=== PATIENT | female | born 1960 | race Caucasian/White ===

== ENCOUNTER 2021-06-04 11:22 | Emergency (ER) | payer MEDICAID, SELFPAY ==
[2021-06-04 12:12] VITALS: BP 163/98; PULSE 88; RESP 20; TEMP 36.8; O2SAT 96; BMI 16.2
[2021-06-04 14:09] LABS: Basophils # 0.1 10^3/uL (0.0-0.1); Basophils % 0.8 %; Eosinophils # 0.4 10^3/uL (0.0-0.8); Eosinophils % 3.4 %; Hematocrit 41.3 % (37.0-47.0); Hemoglobin 13.7 g/dL (11.5-15.3); Lymphocytes # 0.7 10^3/uL (0.8-4.8); Mean Corpuscular HGB Conc 33.2 g/dL (30.0-36.0); Mean Corpuscular Hemoglobin 28.3 pg (28.0-34.0); Mean Corpuscular Volume 85.3 fL (81-99); Mean Platelet Volume 9.9 fL (7.4-10.4); Monocytes # 0.4 10^3/uL (0.2-0.9); Monocytes % 3.4 %; Neutrophils % 85.1 %; Nucleated Red Blood Cells % 0 %; Platelet Count 410 10^3/cmm (130-400); Red Blood Count 4.84 10^6/uL (4.1-5.3); Red Cell Distribution Width 13.9 % (12.1-15.1); White Blood Count 10.6 10^3/uL (4.0-10.0)
[2021-06-04 14:14] VITALS: BP 180/79; PULSE 97; RESP 22; O2SAT 98
--- NOTE | 2021-06-04 14:17 | ED_ITS ---
HPI - Abdominal Pain General: Chief Complaint: Abdominal Pain Stated Complaint: VAG BLEEDING FOR 3-4 MONTHS Time Seen by Provider: 06/04/21 14:17 History of Present Illness: HPI narrative: This patient is a 60-year-old female who presents to the [facility] department for severe abdominal cramping and vaginal bleeding. Patient states his bleeding has been spotting the past 4 months and occasional pain. Patient states she has not seen a doctor yet for it. Patient states to be any pain has become unbearable today. Patient states her last menstrual period was when she was 51 years old so she has not had anything menstrual wood for 9 years. Do medical evaluation treat as needed MD elicited complaint: abdominal pain Onset (ago): month(s) Pain Consistency: intermittent Location: Diffuse and Pelvis Severity: moderate Quality: cramping Radiation: none Migration to: no migration Exacerbating factors: nothing Relieving factors: nothing Associated Symptoms: Denies chills, dysuria, fever(s), nausea and vomiting Review of Systems General: Reports: 10 or more systems reviewed and unremarkable except in HPI and below Const: Denies: fever(s), chills, body aches or fatigue Eyes: Denies: change in vision or blurry vision ENMT: Denies: throat pain, hoarseness or mouth pain Card: Denies: chest pain, palpitations, irregular heart rhythm, edema, swelling of feet/ankles or lightheadedness Resp: Denies: dyspnea, productive cough, non-productive cough, wheezing or pain on inspiration GI: Denies: abdominal pain, nausea or vomiting : Reports: vaginal bleeding and irregular period; Denies: flank pain, difficulty voiding, dysuria, urinary frequency, urinary urgency or urinary hesitancy Musc: Denies: neck pain, back pain, extremity pain, extremity swelling, joint pain, joint swelling, joint redness, joint warmth or limited range of motion Skin/Breast: Denies: rash, pruritus, erythema or skin tenderness Neuro: Denies: headache(s), numbness in extremities or weakness in extremities Psych: Denies: anxiety or depression Physical Exam Const: COMMON NORMALS: no acute distress, average body habitus, patient oriented x3, no limitations, healthy appearing, alert and well nourished HENMT: COMMON NORMALS: normocephalic, atraumatic, hearing grossly normal bilaterally, external ears normal, EAC's normal, TM's normal bilaterally, Normal external nose present, Normal nasal mucous membranes and turbinates present, moist oral mucous membranes, oropharynx normal, dentition normal and gingiva normal HEAD & SCALP: normocephalic and atraumatic NOSE: Normal external nose present and Normal nasal mucous membranes and turbinates present EXTERNAL EAR: Yes external ears normal EXTERNAL AUDITORY CANAL: EAC's normal TYMPANIC MEMBRANE: TM's normal bilaterally Neck/C-Spine: COMMON NORMALS: full ROM, no lymphadenopathy, supple, no meningeal signs, no JVD, Thyroid normal and No carotid bruits THYROID: Thyroid normal Chest: COMMONS NORMALS: normal inspection of the chest, normal palpation of entire chest wall, normal inspection of the breasts and normal palpation of the breasts Breast/axilla inspection: Yes normal inspection of the breasts BREAST/AXILLA PALPATION: Yes normal palpation of the breasts Resp: COMMON NORMALS: normal respiratory effort, No retractions, No use of accessory muscles, clear to auscultation bilaterally and percussion normal AUSCULTATION: clear to auscultation bilaterally PERCUSSION: percussion normal Cardio: COMMON NORMALS: no JVD, regular rate, regular rhythm, S1 normal heart sound present, S2 normal heart sound present, No gallops present (Cardio), No clicks present (Cardio), No murmurs present (Cardio), No rub (Cardio) and Peripheral pulses 2+ throughout RATE: regular rate RHYTHM: regular rhythm HEART SOUNDS: S1 normal heart sound present and S2 normal heart sound present PERIPHERAL PULSES: Peripheral pulses 2+ throughout GI: COMMON NORMALS: Normal to inspection, nondistended, normoactive bowel sounds present, Soft to palpation, non-tender, No hepatosplenomegaly present, no masses and no bruits PALPATION: Yes Soft to palpation and Yes No hepatosplenomegaly present Back/Pelvis: COMMON NORMALS: thoracic and lumbar spine normal to inspection, no thoracic nor lumbar tenderness, thoraco-lumbar ROM normal and straight leg raise negative bilaterally Extremity: COMMON NORMALS: normal to inspection, full ROM, capillary refill normal, no joint enlargement, no clubbing, cyanosis or edema, no calf tenderness and no pedal edema Neuro: COMMON NORMALS: patient oriented x3 SENSORIUM/ORIENTATION: Yes alert MENINGEAL SIGNS: Yes no meningeal signs Course Reevaluation(s): Reevaluation #1: Pt States understanding of D/C instruction by Dr Arias Time: 19:29 Consultations: Consultation #1: Patient was seen evaluated by Dr. Arias he will follow patient up in the clinic patient safely be discharged home. Time: 19:29 Vital Signs: Vital signs: Vital Signs Temperature 98.3 F 06/04/21 12:12 Pulse Rate 97 06/04/21 14:14 Respiratory Rate 22 H 06/04/21 14:14 Blood Pressure 180/79 06/04/21 14:14 Pulse Oximetry 98 06/04/21 14:14 MDM - Abdominal Pain MDM Narrative: Medical decision making narrative: This patient is a 60-year-old female who presents to the [facility] department for severe abdominal cramping and vaginal bleeding. Patient states his bleeding has been spotting the past 4 months and occasional pain. Patient states she has not seen a doctor yet for it. Patient states to be any pain has become unbearable today. Patient states her last menstrual period was when she was 51 years old so she has not had anything menstrual wood for 9 years. Differential Diagnosis: Differential diagnosis abdominal pain: Likely abdominal pain Medical Records: Attestation: I reviewed the patient's medical records. Lab Data: Attestation: I reviewed the patient's lab results. Labs: Lab Results 06/04/21 06/04/21 06/04/21 Range/Units 13:51 13:51 13:51 WBC 10.6 H (4.0-10.0) 10^3/ uL RBC 4.84 (4.1-5.3) 10^6/u L Hgb 13.7 (11.5-15.3) g/dL Hct 41.3 (37.0-47.0) % MCV 85.3 (81-99) fL MCH 28.3 (28.0-34.0) pg MCHC 33.2 (30.0-36.0) g/dL RDW 13.9 (12.1-15.1) % Plt Count 410 H (130-400) 10^3/c mm MPV 9.9 (7.4-10.4) fL Neut % (Auto) 85.1 % Lymph % (Auto) 7.0 % [place] % (Auto) 3.4 % Eos % (Auto) 3.4 % Baso % (Auto) 0.8 % Neut # (Auto) 9.00 H (1.8-7.7) 10^3/u L Lymph # (Auto) 0.7 L (0.8-4.8) 10^3/u L [place] # (Auto) 0.4 (0.2-0.9) 10^3/u L Eos # (Auto) 0.4 (0.0-0.8) 10^3/u L Baso # (Auto) 0.1 (0.0-0.1) 10^3/u L Nucleated RBC % (a uto) 0 % Nucleated RBCs # 0.0 /100WBC PT 13.90 (12.1-14.9) SECO NDS INR 1.04 (0.8-1.2) APTT 31.0 (23.9-36.7) SECO NDS Sodium 136 (136-145) mmol/L Potassium 3.7 (3.5-5.1) mmol/L Chloride 101 (98-107) mmol/L Carbon Dioxide 23 (22-29) mmol/L Anion Gap 15.7 (5-19) BUN 16 (6-20) mg/dL Creatinine 0.4 L (0.5-0.9) mg/dL GFR Calculation 163.4 H (90-130) mL/min Glucose 97 (65-115) mg/dL Calculated Osmolal ity 283 L (285-295) mOsm/k g Calcium 9.6 (8.5-10.5) mg/dL Urine Color (Yellow) Urine Appearance (CLEAR) Urine pH (5-7) Ur Specific Gravit y (1.005-1.030) Urine Protein (Negative) Urine Glucose (UA) (Normal) Urine Ketones (Negative) Urine Blood (Negative) Urine Nitrate (Negative) Urine Bilirubin (Negative) Urine Urobilinogen (Negative) mg/dL Ur Leukocyte Diana ase (Negative) Urine RBC (0-2) /hpf Urine WBC (0-5) /hpf Ur Squamous Epith Cells (0-5) /hpf Amorphous Sediment Urine Bacteria (NONE) /hpf Urine Mucus /hpf 06/04/21 Range/Units 14:23 WBC (4.0-10.0) 10^3/ uL RBC (4.1-5.3) 10^6/u L Hgb (11.5-15.3) g/dL Hct (37.0-47.0) % MCV (81-99) fL MCH (28.0-34.0) pg MCHC (30.0-36.0) g/dL RDW (12.1-15.1) % Plt Count (130-400) 10^3/c mm MPV (7.4-10.4) fL Neut % (Auto) % Lymph % (Auto) % [place] % (Auto) % Eos % (Auto) % Baso % (Auto) % Neut # (Auto) (1.8-7.7) 10^3/u L Lymph # (Auto) (0.8-4.8) 10^3/u L [place] # (Auto) (0.2-0.9) 10^3/u L Eos # (Auto) (0.0-0.8) 10^3/u L Baso # (Auto) (0.0-0.1) 10^3/u L Nucleated RBC % (a uto) % Nucleated RBCs # /100WBC PT (12.1-14.9) SECO NDS INR (0.8-1.2) APTT (23.9-36.7) SECO NDS Sodium (136-145) mmol/L Potassium (3.5-5.1) mmol/L Chloride (98-107) mmol/L Carbon Dioxide (22-29) mmol/L Anion Gap (5-19) BUN (6-20) mg/dL Creatinine (0.5-0.9) mg/dL GFR Calculation (90-130) mL/min Glucose (65-115) mg/dL Calculated Osmolal ity (285-295) mOsm/k g Calcium (8.5-10.5) mg/dL Urine Color Yellow (Yellow) Urine Appearance Clear (CLEAR) Urine pH 6 (5-7) Ur Specific Gravit y 1.020 (1.005-1.030) Urine Protein Trace (Negative) Urine Glucose (UA) Norm (Normal) Urine Ketones 1+ H (Negative) Urine Blood Neg (Negative) Urine Nitrate Negative (Negative) Urine Bilirubin Neg (Negative) Urine Urobilinogen Norm (Negative) mg/dL Ur Leukocyte Diana ase Negative (Negative) Urine RBC None (0-2) /hpf Urine WBC 0-4 H (0-5) /hpf Ur Squamous Epith Cells 5-10 H (0-5) /hpf Amorphous Sediment Not Reportable Urine Bacteria Trace (NONE) /hpf Urine Mucus 2+ /hpf Imaging Data ^: US: Attestation: I personally reviewed and interpreted this imaging study as follows: Radiologist's impression: IMPRESSION: 1. There is limited characterization of the uterus and the endometrium with only transabdominal imaging available. Endometrial thickening is suspected. By correlation with the available CT scan there may be a large infiltrative mass of the lower uterine segment and cervix area. 2. Further evaluation is necessary. CT Abd/Pel: Attestation: I personally reviewed and interpreted this imaging study as follows: Radiologist's impression: IMPRESSION: 1. Heterogeneous myometrium and endometrium. With history of vaginal bleeding consider transvaginal pelvic ultrasound imaging. 2. Patient is very cachectic. Lymph nodes would be easily obscured with no fat the loops of colon. No ascites identified. No metastatic lesions in the liver or adrenal glands. 3. Heavy calcification at the aortic bifurcation and common iliac arteries. Component of arterial stenosis is likely. Discharge Plan Discharge Patient Disposition: Home Clinical Impression: Abnormal uterine and vaginal bleeding, unspecified Condition: Stable Prescriptions: New Lysteda 650 mg tablet 1,300 mg PO TID 5 Days Qty: 30 RF: 0 hydrocodone-acetaminophen 5-325 mg tablet 1 tab PO Q6H PRN (Reason: pain) Qty: 7 RF: 0 No Action Tylenol 325 mg Tablet 325 - 650 mg PO QID PRN (Reason: Pain) RF: 0 ibuprofen 200 mg Tablet 200 - 400 mg PO Q6H PRN (Reason: PAIN/FEVER) RF: 0 Discharge Orders: Discharge ED (Routine); Ordered 06/04/21 Ordered By: Ulises Tafoya Referrals: Ronnie Arias MD [Physician] - Discharge Diet: Advance as tolerated Discharge Activity: Resume usual activity Patient Instructions: Opioid Safety Activity Restrictions/Additional Instructions: Encourage p.o. fluids. Follow-up with [facility] TECHNICIAN in 5 to 7 days Coding Level of Care Code ED Central Lab Technician for Chg Fwd Exam Comprehensive
--- NOTE | 2021-06-04 14:23 | CT_ITS ---
WS: [id number] CT ABDOMEN AND PELVIS WITH CONTRAST HISTORY: Abdominal pain with vaginal bleeding for 4 months. TECHNIQUE: Imaging performed of the abdomen and pelvis with IV contrast. Single phase imaging of the abdomen. Coronal and sagittal reformats are submitted. All CT scans at [facility] use at least one of these dose optimization techniques: automated exposure control; mA and/or kV adjustment per patient size (includes targeted exams where dose is matched to clinical indication); or iterativ e reconstruction. IV CONTRAST: Omnipaque 300; 75 mL IV. Oral contrast: No DLP: 592.27 mGy.cm COMPARISON: None available. Lower thorax: Chronic emphysema at the lung bases. Heart is normal size. No hiatal hernia. Liver/biliary system: Normal size liver. Very mild central bile duct dilatation. Bile duct does not a ppear dilated. No mass at the pancreatic head or stone. Gallbladder: Normal. No gallstones or wall thickening. No pericholecystic fluid. Pancreas: Pancreas difficult to visualize as there is no mesenteric fat. No abnormality noted. Spleen: Normal size spleen. No mass or infarct. Adrenal glands: Normal. Right kidney: Too small to characterize hypodensities. No obstruction. Left kidney: Cyst and too small to characterize hypodensities. Largest cyst is 1.0 cm in the lower po le. No obstruction. Aorta: Extensive calcification within the aorta. Moderate stenosis at the bifurcation. There is 6 hea vy calcification in the proximal iliac arteries. Component of arterial obstruction is suspected. Lymphadenopathy: No lymph nodes are identified. There is very little fat the loops of tia l. Lymph nodes would be easily obscured. Free fluid: None. GI tract: Mild fecal retention. Appendix is not definitely identified. No obstruction. Abdominal wall: Unremarkable abdominal wall. No hernia. Pelvis: Lobulated heterogeneous appearance of the uterus. Central endometrium is heterogeneous with b oth scattered cystic areas and solid areas. Neither ovary is well visualized. Bones: L4 anterolisthesis by 4 mm. Prior fusion at L5-S1. CT/CT abdomen pelvis w con* [id number] IMPRESSION: 1. Heterogeneous myometrium and endometrium. With history of vaginal bleeding consider transvaginal pelvic ultrasound imaging. 2. Patient is very cachectic. Lymph nodes would be easily obscured with no fat the loops of colon. No ascites identified. No metastatic lesions in the liver or adrenal glands. 3. Heavy calcification at the aortic bifurcation and common iliac arteries. Co mponent of arterial stenosis is likely.
[2021-06-04 14:25] LABS: INR 1.04 (0.8-1.2)
[2021-06-04 14:31] LABS: Anion Gap 15.7 (5-19); Blood Urea Nitrogen 16 mg/dL (6-20); Calcium 9.6 mg/dL (8.5-10.5); Carbon Dioxide 23 mmol/L (22-29); Chloride 101 mmol/L (98-107); Glomerular Filtration Rate 163.4 mL/min (90-130); Glucose 97 mg/dL (65-115); Osmolality Calculated 283 mOsm/kg (285-295); Potassium 3.7 mmol/L (3.5-5.1); Sodium 136 mmol/L (136-145)
[2021-06-04] MEDS: ondansetron 2 mg/ML SDV 2 mL 4 MG IVP (14:48)
[2021-06-04] MEDS: sodium chloride 0.9% 1,000 ML 999 ML IV (14:49)
[2021-06-04] MEDS: morphine 4 mg/mL SDV 1 mL 2 MG IVP (14:49)
[2021-06-04] MEDS: iohexol 300 mg/mL 100 mL Btl IV (14:56)
[2021-06-04 15:01] LABS: Add Urine Microscopic? YES; Bilirubin Urine Neg (Negative); Blood Urine Neg (Negative); Glucose Urine UA Norm (Normal); Ketones Urine 1+ (Negative); Leukocyte Esterase Urine Negative (Negative); Nitrate Urine Negative (Negative); Protein Urine Trace (Negative); Urine Appearance Clear (CLEAR); Urine Color Yellow (Yellow); Urobilinogen Urine Norm (Negative); pH Urine 6 (5-7)
--- NOTE | 2021-06-04 15:15 | USR_ITS ---
PROCEDURE INFORMATION: Exam: US Nonobstetric Pelvis; Complete Exam date and time: 06/04/2021 3:15 PM Age: 60 years old Clinical indication: Pelvic pain; Prior surgery; Surgery date: 6+ months; Surgery type: 2 c sections; Patient HX: PT in extreme pain. Vag bleed 4 months TECHNIQUE: Imaging protocol: Transabdominal pelvic nonobstetric ultrasound. Complete exam. Real time ultrasound with image documentation. COMPARISON: CT abdomen pelvis w con* [id number] 06/04/2021 2:51 PM FINDINGS: Uterus/cervix: The uterus is not well characterized overall. The size dimensions are approximately 5.8 cm x 3.8 cm x 2.9 cm. The endometrial complex is not well seen distinct from uterine parenchyma. There is possible endometrial thickening. Right adnexa: The right ovary is not seen. The right adnexa is obscured by bowel gas. Left adnexa: The left ovary is not seen. The left adnexa is obscured by bowel gas. Intraperitoneal space: No intraperitoneal fluid. Urinary bladder: Unremarkable. US/US pelvic complete* [id number] IMPRESSION: 1. There is limited characterization of the uterus and the endometrium with only transabdominal imaging available. Endometrial thickening is suspected. By correlation with the available CT scan there may be a large infiltrative mass of the lower uterine segment and cervix area. 2. Further evaluation is necessary.
[2021-06-04 15:19] LABS: Add Urine Culture? No; Bacteria Urine TRACE /hpf; Mucus Urine 2+ /hpf; WBC Urine 0-4 /hpf (0-5)
[2021-06-04] MEDS: ketorolac 30 mg/mL INJ 15 MG IVP (15:57)
[2021-06-04] MEDS: LORazepam 2 mg/mL INJ 1 mL 0.5 MG IVP (18:57)
[2021-06-04 19:52] VITALS: BP 163/88; PULSE 78; RESP 18; TEMP 36.9; O2SAT 96
== END 2021-06-04 19:40 | disposition home or self-care (01) ==
PROVIDERS: Emergency Provider Emergency Medicine
DX: N93.9 Abnormal uterine and vaginal bleeding, unspecified (principal)
CPT/HCPCS: 36415; 74177; 76856; 80048; 81001; 85025; 85610; 85730; 96361; 96374; 96375; 96376; 99284; J1885; J2060; J2270; J2405; J7030; Q9967

== ENCOUNTER → 2021-07-02 15:15 | Outpatient (BNVA) | payer MEDICAID, SELFPAY | PROVIDERS: Visit Provider Obstetrics & Gynecology | DX: Z20.822 Contact with and (suspected) exposure to COVID-19 (principal); N95.0 Postmenopausal bleeding; R10.2 Pelvic and perineal pain; G89.29 Other chronic pain | CPT/HCPCS: 87635 ==

== ENCOUNTER 2021-07-07 05:45 | Day surgery (SDC) | payer MEDICAID, SELFPAY ==
[2021-07-06 14:02] VITALS: BMI 16.5
[2021-07-07] VITALS (15 sets, daily range): BP systolic 99–161; BP diastolic 51–97; PULSE 58–97; RESP 18–21; TEMP 37.2–37.3; O2SAT 94–98
[2021-07-07 06:27] LABS: Add Urine Culture? No; Add Urine Microscopic? YES; Bacteria Urine 1+ /hpf; Bilirubin Urine Neg (Negative); Blood Urine 2+ (Negative); Glucose Urine UA Norm (Normal); Ketones Urine Negative (Negative); Leukocyte Esterase Urine 1+ (Negative); Nitrate Urine Negative (Negative); Protein Urine Trace (Negative); Transitional Epi Cells Urine 15-25 /hpf; Urine Appearance SL Hazy (CLEAR); Urine Color Yellow (Yellow); Urobilinogen Urine Norm (Negative); WBC Urine 40-55 /hpf (0-5); pH Urine 5 (5-7)
--- NOTE | 2021-07-07 06:38 | ANES.PREANE2 ---
Pre-Anesthetic Assessment Pre-Anesthetic Assessment: Height/Weight: Height 1.57 m Weight 40.823 kg Preop Diagnosis: Postmenopausal bleeding Proposed Procedure: Operation Date: 07/07/21 07:00 Proposed Procedures p Hysteroscopy [id number] R10.2(Not Applicable) - Ronnie Arias MD Familial anesthetic complications: None Was Beta Eri taken within 24 hours: N/A Was Clonidine taken within 24 hours: N/A Last intake: Intake Last Liquid Date 07/06/21 Last Liquid Time 23:00 Last Solid Date 07/06/21 Last Solid Time 19:00 Social: Social History: Tobacco and No alcohol Exam: Pre-Anes Outpt Exam: alert, oriented x 3, clear to auscultation bilaterally and regular rate & rhythm Airway: Cervical ROM: WNL MP: 2 Dentition: Other (no teeth) Pulmonary: Pulmonary: COPD CV/HEM: CV/HEM: HTN GI: GI: GERD Anesthetic Plan: ASA status: 2 Anesthesia: General Risk of > 500 ml blood loss (7ml/kg in children): No PFSH Anesthesia PFSH: Medical History (Updated 07/02/21 @ 15:14 by Ronnie Arias MD) Abdominal pain GERD (gastroesophageal reflux disease) Hypertension Mass of uterine cervix determined by ultrasound Nausea & vomiting Vestibular nerve damage Family History (Updated 07/02/21 @ 14:16 by Enriqueta Robb LPN) Mother Diabetes Hypertension Stroke Thyroid disease Denies family history of Colon cancer Ovarian cancer Clotting disorder Hyperlipidemia Bleeding disorder Uterine cancer Social History (Updated 07/02/21 @ 14:17 by Enriqueta Robb LPN) Smoking and tobacco status: current every day smoker cigarettes Packs smoked per day: 1 Alcohol intake: former Data Anesthesia Other Labs: Laboratory Results - last 48 hr 07/07/21 06:04 Urine Color Yellow Urine Appearance Sl hazy Urine pH 5 Ur Specific [place] 1.020 Urine Protein Trace Urine Glucose (UA) Norm Urine Ketones Negative Urine Blood 2+ H Urine Nitrate Negative Urine Bilirubin Neg Urine Urobilinogen Norm Ur Leukocyte Esterase 1+ H Urine RBC 5-10 H Urine WBC 40-55 H Ur Squamous Epith Cells 10-15 H Ur Transition Epith Cell 15-25 Amorphous Sediment Not Reportable Urine Bacteria 1+ H Cardiac Studies: No Data to Display
--- NOTE | 2021-07-07 06:59 | W.PM.OPSUD ---
Surgery/Procedure H&P Update DATE OF PROCEDURE: July 07, 2021 DATE H&P PERFORMED: 07/02/21 H&P UPDATE INFORMATION: I have reviewed H&P completed within last 30 days, I have examined patient prior to procedure and No changes to prior documentation PREOP DIAGNOSIS: Postmenopausal bleeding PLANNED PROCEDURE: Operation Date: 07/07/21 07:00 Proposed Procedures p Hysteroscopy [id number] R10.2(Not Applicable) - Ronnie Arias MD
[2021-07-07] MEDS: sodium chloride 0.9% 1,000 ML 30 ML IV (07:00)
[2021-07-07] MEDS: fentaNYL 50 mcg/mL INJ 2mL 100 MCG (08:15)
[2021-07-07] MEDS: fentaNYL 50 mcg/mL INJ 2mL IVP (08:20)
[2021-07-07 08:29] LABS: Basophils # 0.1 10^3/uL (0.0-0.1); Basophils % 0.9 %; Eosinophils # 1.2 10^3/uL (0.0-0.8); Eosinophils % 11.5 %; Hematocrit 37.6 % (37.0-47.0); Hemoglobin 12.4 g/dL (11.5-15.3); Lymphocytes # 0.8 10^3/uL (0.8-4.8); Lymphocytes % 7.2 %; Mean Corpuscular Hemoglobin 28.2 pg (28.0-34.0); Mean Corpuscular Volume 85.6 fl (81-99); Mean Platelet Volume 11.1 fL (7.4-10.4); Monocytes # 0.5 10^3/uL (0.2-0.9); Monocytes % 4.8 %; Neutrophils # 8.01 10^3/uL (1.8-7.7); Neutrophils % 75.3 %; Nucleated Red Blood Cells % 0 %; Platelet Count 287 10^3/cmm (130-400); Red Blood Count 4.39 10^6/uL (4.1-5.3); Red Cell Distribution Width 13.5 % (12.1-15.1); White Blood Count 10.7 10^3/uL (4.0-10.0)
[2021-07-07 08:38] LABS: Alanine Aminotransferase < 5 U/L (0-33); Albumin Level 4.1 g/dL (3.5-5.2); Alkaline Phosphatase 87 IU/L (35-105); Anion Gap 16.3 (5-19); Aspartate Amino Transferase 13 U/L (0-32); Blood Urea Nitrogen 19 mg/dL (6-20); Calcium 8.6 mg/dL (8.5-10.5); Carbon Dioxide 21 mmol/L (22-29); Chloride 104 mmol/L (98-107); Globulin 3.5 g/dL (1.3-4.6); Glomerular Filtration Rate 163.4 mL/min (90-130); Glucose 93 mg/dL (65-115); Osmolality Calculated 288 mOsm/kg (285-295); Potassium 3.3 mmol/L (3.5-5.1); Sodium 138 mmol/L (136-145); Total Bilirubin 0.4 mg/dL (0.15-1.2); Total Protein 7.6 g/dL (6.6-8.7)
[2021-07-07] MEDS: morphine 4 mg/mL SDV 1 mL IVP (09:12)
--- NOTE | 2021-07-07 09:52 | P.OP_ITS ---
Operative Report Date of procedure: July 07, 2021 Pre-op Diagnosis: Postmenopausal bleeding Post-op diagnosis: same Procedure Done: hysteroscopy and suction D&C Specimens removed/disposition: cervical biopsy and endometrial curetting Pathology: cervical biopsy and endometrial curetting Surgeon: Ronnie Arias MD Anesthesia: MAC Estimated blood loss (mL): 10 IV fluids (mL): 500 Urine output (mL): 50 Condition: stable Disposition: PACU Procedure: After informed consent, the risks included but were not limited to bleeding, infection, injury to internal organs. The patient was counseled on a possible laparotomy and on the potential need for hysterectomy. The patient expressed understanding of the risks involved, all questions were answered, and the patient consented to the procedure. The patient was taken to the operating room where general anesthesia was administered. She was placed in the dorsal lithotomy position and prepped and draped in sterile fashion. A time out procedure was performed. The patient was examined under anesthesia and found to have a normal uterus with normal adnexa. A sterile speculum was placed in the vagina, and the anterior lip of cervix was grasped with the single toothed tenaculum. The uterus was then gently sounded to 5 cm, and the cervix was dilated with c ervical dilators. A 2.7-cm hysteroscope advanced gently to the uterine fundus while visualizing the monitor. Survey of the uterine cavity showed: fundus showed bloody polypoid endometrium; left ostium, and lateral wall with thick irreguar secretory apperance endometrium; right ostium, and lateral wall with thick irreguar secretory apperance endometrium endometrium; anterior and posterior fernandez are with thick irreguar secretory apperance endometrium endometrium; endocervical canal is fibrile. The a suction curette was advanced gently to the uterine fundus and product of conception emptied. A sharp curettage was then performed until a gritty texture was noted. There was minimal bleeding noted and the tenaculum was removed with good hemostasis noted. Hysteroscopy was reinserted. There was minimal bleeding noted and the tenaculum removed with goad hemostasis noted. The patient tolerated the procedure well. The patient was taken to the recovery area in stable condition. This documentation was created by [employer] chief learning officer software (known for inherent chief learning officer error). Every effort was made to assure accuracy of chief learning officer. Any obvious errors or omissions should be clarified with the author of the document.
[2021-07-07] MEDS: ibuprofen 800 mg tablet PO (10:24)
--- NOTE | 2021-07-07 10:37 | SUR.PHASEII ---
patient very angry after post op RX received is ibuprofen 800. she states she needs something stronger. I told her that she had tramadol on her list at home that she would still be able to take, she stated this morning that she took it last night. she says now that she doesnt have anymore tramadol for a while and that it didnt help anything. I took her d/c instructions in and began to read over them with her and she was very negative about her info given and said she already knew all the information. I still read over what she would let me get through then she said she wanted to F-ing leave. Patient dressed herself. Bleeding was on most of michael pad and on the chux under her, this is from the end of procedure until d/c which was time of [id number]. We gave her new michael pads. She left in wheelchair cussing about being sent home with the bleeding she had and not getting stronger medication. Patient left without discharge info packet, we will mail to her. this was reported to Dr. Arias.
--- NOTE | 2021-07-07 13:40 | ANE.PACU2 ---
Inpatient post-anesthesia follow up: Airway intact: Yes Vital signs: Temperature 98.9 F Pulse Rate 97 Respiratory Rate 20 Blood Pressure 148/85 Pulse Oximetry 94 Oxygen Delivery Me thod Room Air Oxygen Flow Rate 8 Fraction of Inspir ed Oxygen Hydration adequate: Yes Nausea and vomiting: No Pain level: 2 Mental status: Baseline
== END 2021-07-07 10:47 | disposition home or self-care (01) ==
PROVIDERS: Visit Provider Obstetrics & Gynecology
PROC: 0UJD8ZZ Inspection of Uterus and Cervix, Via Natural or Artificial Opening Endoscopic (ICD-10-PCS; CPT 58555; principal; 2021-07-07 07:00)
PROC: (CPT 58558; 2021-07-07 07:00)
DX: N95.0 Postmenopausal bleeding (principal); J44.9 Chronic obstructive pulmonary disease, unspecified; I10 Essential (primary) hypertension; F17.210 Nicotine dependence, cigarettes, uncomplicated
CPT/HCPCS: 58558; 36415; 80053; 81001; 85025; 86850; 86900; 88305; 96374; J0690; J2250; J2270; J2405; J2704; J3010; J7030

== ENCOUNTER 2021-09-01 07:58 | Outpatient (CLI) | payer MEDICAID, SELFPAY ==
[2021-09-01 08:58] VITALS: RESP 18; O2SAT 98
[2021-09-01] MEDS: HYDROmorphone 1 mg/mL INJ 1 mL 2 MG IV (08:58)
[2021-09-01] MEDS: LORazepam 0.5 mg Tablet 1 MG PO (09:45)
--- NOTE | 2021-09-01 10:25 | ONC CON_ITS ---
Dr. Dodson New Patient Note Patient: Qing Jesus Unit #: [id number]: 1960 Dicatated By: Graeme Dodson M.D.Date of Visit: Sep 01, 2021 Onc MED New Patient/Consult Referring Physician: Dr. JOSEPH TRAVIS M.D. History of Present Illness: Ms. Qing Jesus, is a 60-year-old woman with a history of lower abdominal pain and progressive vaginal bleeding of 4 months prior to diagnosis duration, underwent CT scan of abdomen pelvis on June 04, 2021 which showed no evidence of hydronephrosis or ureteral obstruction, no lymphadenopathy, lobulated and heterogeneous appearance of uterus, central endometrium is heterogeneous with scattered solid areas, neither ovary was well visualized. And there was a heavy calcification at the aortic bifurcation and common iliac arteries with a component of arterial stenosis likely., For her postmenopausal bleeding patient underwent hysteroscopy and D&C on July 04, 2021 and final pathology revealed endometrial curettage with invasive squamous cell carcinoma, moderately differentiated endocervical biopsy was obtained which confirmed invasive squamous cell carcinoma, moderately differentiated. Patient underwent MRI scan of the pelvis on August 05, 2021 which shows cervical mass extends posterior and is abutting anterior margin of the distal sigmoid colon with no convincing evidence of direct invasion. And enlarged cervix mass also abutting the posterior wall of bladder and cause contour deformity of the bladder but no convincing evidence of bladder wall invasion. CT PET scan done on August 05, 2021 shows intense FDG activity in the region of cervix with SUV of 16.2 and there is 1.4 cm soft tissue nodule adjacent to the right external iliac vasculature with SUV of 11.8 consistent with local metastatic disease. There is a 1.3 cm nodule in the right infrahilar region of the right lung in the right lower lobe with SUV of 1.7. There are 3 small foci of minimally increased activity in the right upper lobe, Patient was referred to [facility] [employer] oncologist in [place], where patient was evaluated by medical oncologist as well as radiation oncologist and patient was diagnosed with cervical cancer, clinical stage at least FIGO stage IIb and was recommended combined chemoradiation with weekly cisplatin, for patient's convenience she was referred to cancer center in [place] for the treatment. Patient has longstanding history of smoking since age 10 and still smoke about 1 pack a day. Denies alcohol use. She has history of chronic lower back pain for which she used to take oxycodone and it was helpful, she has also seen orthopedics in the past she also has history of anxiety disorder for which she used to take Ativan 1 mg every 8 hours as needed Patient is complaining of severe pain lower pelvic/vaginal pain and still having off and on vaginal bleeding, denies any discharge denies any pus but sometimes dysuria/off-and-on fever, denies any melena or hematochezia, denies any hemoptysis hematemesis, denies any jaundice. Complaining of significant weight loss due to poor appetite Past Medical History: Ms. Jesus's medical history consists of calcification of aorta, depression, and hypertension. Past Surgical History: Ms. Jesus's surgical/procedural history consists of caesarean section and lumbar spine surgery with hardware placed. Medications: There is no information available for Current Medications - Patient. Allergies: Amitriptyline HCl and traZODone HCl. Social History: Ms. Jesus is . She is a daily smoker. She is a former drinker. Family History: There is no documented family history. Review Of Symptoms: Review of Systems is not available for this patient. Vital Signs: Performed on Sep 01, 2021 08:46: 10, 10, 16.20 (LOW), 1.42 sq.m, 64 in, 98 %, 94 /min, 18 /min, 187/81 mm(hg) (HIGH), 97.6 F (LOW), and 94.4 lbs (HIGH). Performance Status: 0 - Fully active, able to carry on all predisease activities without restrictions. (ECOG) Physical Examination: ENMT - No complaints, no jaundice, Respiratory - Lungs are clear to auscultation, Cardiovascular - Regular rate and rhythm of heart, Abdomen - Soft, bowel sounds present, Extremities - No visible edema. Lab/Imaging: Most recent lab results are not available for this patient. 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 There is a 1.3 cm nodule in the right infrahilar region of the right lung in the right lower lobe with SUV of 1.7. There are 3 small foci of minimally increased activity in the right upper lobe, Anxiety disorder Chronic smoking Right lower lobe lung nodule History of chronic back pain Plan: Discussed with patient regarding her disease status and treatment options, patient has already seen radiation oncologist and medical oncologist in [place] and has been recommended combined chemoradiation with weekly cisplatin 40 mg per metered square, patient and daughter is aware of related side effects related to weekly cisplatin, but discussed again including but not limited to, nausea vomiting, bone marrow suppression, hair loss, or, nay/nephrotoxicity, were mentioned further teaching will be done by chemotherapy nurse. We will obtain approval from her insurance prior to the treatment and also request Port-A-Cath placement As far as pain is concerned, which appears multifactorial, will give a prescription for oxycodone 10 mg every 6 hours as needed and Ativan 1 mg every 8 hour as needed. Due to dysuria and off-and-on fever will check a urinalysis if there is evidence of urine tract infection will consider antibiotics. As for his right lung nodule seen on CT PET scan is a concern, patient high risk for second primary due to longstanding history of chronic/heavy smoking, will refer her to pulmonology for evaluation in near future Patient was advised to quit smoking was offered any assistance she may need. We will obtain baseline CBC CMP prior to the treatment. Signed By: Graeme Dodson M.D. <<Signature on File>>
--- NOTE | 2021-09-01 10:27 | N.ONRAD NP_ITS ---
Radiation Oncology Consultation Patient Name: Qing Jesus Date of : 1960 Date of Service: 09/01/2021 Attending Physician: Rafi Coelho M.D. Qing Jesus was seen in consultation this morning at the request of Carlo Rubio M.D. for consideration of definitive radiotherapy for the management of a recently diagnosed locally advanced cervical cancer. She presented to [facility] in May with abdominal cramping and vaginal bleeding. Her initial hemoglobin was 13.7 g/dL. An abdominopelvic CT scan obtained during the ED visit on June 04, 2021 identified a lobulated heterogeneous uterus without pelvic lymphadenopathy. A hysteroscopy completed by Ronnie Arias M.D. on July 07, 2021 with cervical biopsy and endometrial curetted diagnosed in invasive, moderately differentiated squamous cell carcinoma (the pathology report was personally reviewed in [facility]). In July, she was admitted to [facility] in [place], [place] by the Department of Gynecologic Oncology. An exam under anesthesia with cystoscopy and proctoscopy was performed by Preethi Farfan M.D. on August 04, 2021. A 4 cm x 5 cm endocervical mass extending to the rectum with bilateral parametrial involvement was described. A mass-effect was present upon the rectum without evidence of rectal invasion. Cystoscopy did not reveal evidence of bladder invasion. An MRI of the pelvis ordered on August 05, 2021 identified a 6 cm x 3.6 cm x 5 cm cervical mass with extension into the lower uterine segment without evidence of pelvic lymphadenopathy. PET/CT imaging completed on August 06, 2021 (independently visualized in [facility]) confirmed the cervical malignancy (SUV 16.2) and a right external iliac lymph node measuring 1.4 cm (SUV 11.8). Multiple pulmonary nodules with minimal hypermetabolic activity were present presumptively correlating to an inflammatory process. The patient was referred for pelvic radiotherapy. I reviewed the FIGO staging and specifically the patient's FIGO stage IIIC1 corresponding to her disease. I also discussed The National Comprehensive Cancer Network Guidelines recommending pelvic external beam radiotherapy and brachytherapy with concurrent systemic therapy. I also discussed the classic trials by the GOG and the RTOG that randomized women with locally advanced cervical cancer to three concurrent chemotherapy regimens and pelvic radiotherapy (GOG) or extended field radiotherapy or pelvic radiation and chemotherapy (RTOG). The results of these studies revealed improvement in overall survival and progression free survival in the cisplatin chemotherapy arms. I would endorse pelvic radiotherapy followed by [id number]-hoke vaginal brachytherapy. A computed tomographic radiotherapy planning scan with contrast in the treatment position will be acquired and co-registered to the patient's PET CT scan to identify the gross tumor volumes. The potential toxicities of extended-field radiation therapy were reviewed. The patient has verbalized understanding would like to proceed as recommended. The patient's medical treatment plan was discussed with Hui Dodson M.D. Signed by: Dr. Rafi Coelho 09/01/2021 10:26:27 AM
[2021-09-01 10:51] LABS: Bilirubin Urine Neg (Negative); Blood Urine Neg (Negative); Glucose Urine UA Norm (Normal); Ketones Urine Negative (Negative); Leukocyte Esterase Urine Trace (Negative); Nitrate Urine Negative (Negative); Protein Urine Neg (Negative); Urine Appearance Clear (CLEAR); Urine Color Yellow (Yellow); Urobilinogen Urine Norm (Negative); pH Urine 5 (5-7)
[2021-09-01 10:52] LABS: Add Urine Culture? No; Bacteria Urine TRACE /hpf; Mucus Urine TRACE /hpf; RBC Urine 0-4 /hpf (0-2); Squamous Epithelial Cell Urine 0-4 /hpf (0-5); WBC Urine 0-4 /hpf (0-5)
[2021-09-01 11:11] LABS: Basophils # 0.1 10^3/uL (0.0-0.1); Basophils % 0.6 %; Eosinophils # 2.2 10^3/uL (0.0-0.8); Eosinophils % 21.3 %; Hematocrit 33.1 % (37.0-47.0); Hemoglobin 10.8 g/dL (11.5-15.3); Lymphocytes # 0.8 10^3/uL (0.8-4.8); Lymphocytes % 7.5 %; Mean Corpuscular HGB Conc 32.6 g/dL (30.0-36.0); Mean Corpuscular Hemoglobin 27.3 pg (28.0-34.0); Mean Corpuscular Volume 83.6 fl (81-99); Mean Platelet Volume 10.1 fL (7.4-10.4); Monocytes # 0.4 10^3/uL (0.2-0.9); Monocytes % 3.4 %; Neutrophils % 66.8 %; Nucleated Red Blood Cells % 0 %; Platelet Count 326 10^3/cmm (130-400); Red Blood Count 3.96 10^6/uL (4.1-5.3); Red Cell Distribution Width 13.9 % (12.1-15.1); White Blood Count 10.2 10^3/uL (4.0-10.0)
[2021-09-01 11:43] LABS: Alanine Aminotransferase < 5 U/L (0-33); Albumin Level 4.1 g/dL (3.5-5.2); Alkaline Phosphatase 94 IU/L (35-105); Anion Gap 17.1 (5-19); Aspartate Amino Transferase 9 U/L (0-32); Blood Urea Nitrogen 16 mg/dL (6-20); Calcium 9.1 mg/dL (8.5-10.5); Carbon Dioxide 21 mmol/L (22-29); Chloride 102 mmol/L (98-107); Creatinine Clr Calc Pharmacy 90.1078; Globulin 3.8 g/dL (1.3-4.6); Glomerular Filtration Rate 126.3 mL/min (90-130); Glucose 93 mg/dL (65-115); Osmolality Calculated 285 mOsm/kg (285-295); Potassium 3.1 mmol/L (3.5-5.1); Sodium 137 mmol/L (136-145); Total Bilirubin 0.2 mg/dL (0.15-1.2); Total Protein 7.9 g/dL (6.6-8.7)
== END 2021-09-01 07:59 | disposition home or self-care (01) ==
PROVIDERS: Absent Provider Radiology Radiation Oncology; Visit Provider Internal Medicine Hematology & Oncology
DX: C53.9 Malignant neoplasm of cervix uteri, unspecified (principal); F41.9 Anxiety disorder, unspecified; F17.210 Nicotine dependence, cigarettes, uncomplicated; R91.1 Solitary pulmonary nodule; M54.50 Low back pain, unspecified; G89.29 Other chronic pain; Z79.899 Other long term (current) drug therapy
CPT/HCPCS: 36415; 80053; 81001; 85025; 96372; 99205; J1170

== ENCOUNTER → 2021-10-07 13:37 | Outpatient (BNVA) | payer MEDICAID, SELFPAY | PROVIDERS: PCP Family Medicine Adult Medicine; Referring Provider Internal Medicine Hematology & Oncology; Visit Provider Surgery | DX: Z20.822 Contact with and (suspected) exposure to COVID-19 (principal); C53.8 Malignant neoplasm of overlapping sites of cervix uteri | CPT/HCPCS: 87635 ==

== ENCOUNTER 2021-10-18 10:03 | Day surgery (SDC) | payer MEDICAID, SELFPAY ==
[2021-10-11 15:16] VITALS: BMI 16.5
--- NOTE | 2021-10-18 | SCC_ITS ---
Procedure Done: 1. Placement of PowerPort via right subclavian vein 2. Fluoroscopic guidance and interpretation for placement of catheter 9.2 seconds of fluoroscopic guidance, for a cumulative dose of 0.88 mGy, was provided to Dr. Cuevas by the radiology department. C-arm images of the chest were saved for the patient's permanent record. [facility]
--- NOTE | 2021-10-18 10:10 | SC_ITS ---
WS: [id number] INTRAOPERATIVE TECHNIQUE: 2 Spot fluoroscopic images for intraoperative purposes. FLUOROSCOPY TIME: 9.2 seconds CLINICAL INFORMATION: Powerport Placement COMPARISON: None. FINDINGS: Right Port-A-Cath with tip in the distal SVC. No visualized pneumothorax. SC/C-arm [place] CVA [id number] IMPRESSION: Images obtained for intraoperative purposes.
[2021-10-18 10:25] VITALS: BP 108/66; PULSE 100; RESP 18; TEMP 36.1; O2SAT 97
--- NOTE | 2021-10-18 10:48 | W.PM.OPSUD ---
Surgery/Procedure H&P Update DATE OF PROCEDURE: October 18, 2021 DATE H&P PERFORMED: 10/07/21 H&P UPDATE INFORMATION: I have reviewed H&P completed within last 30 days, I have examined patient prior to procedure and No changes to prior documentation PREOP DIAGNOSIS: Cervical cancer PRIMARY INDICATION FOR PROCEDURE: The same PLANNED PROCEDURE: Operation Date: 10/18/21 10:40 Proposed Procedures p Portacath Placement(Not Applicable) - Eduardo Cuevas MD
--- NOTE | 2021-10-18 10:49 | ANES.PREANE2 ---
Pre-Anesthetic Assessment Pre-Anesthetic Assessment: Height/Weight: Height 1.57 m Weight 40.823 kg Temp Pulse Resp BP Pulse Ox 97.0 F L 100 18 108/66 97 10/18/21 10:25 10/18/21 10:25 10/18/21 10:25 10/18/21 10:25 10/18/21 10:25 Preop Diagnosis: Cervical cancer Proposed Procedure: Operation Date: 10/18/21 10:40 Proposed Procedures p Portacath Placement(Not Applicable) - Eduardo Cuevas MD Was Beta Eri taken within 24 hours: N/A Was Clonidine taken within 24 hours: N/A Last intake: Intake Last Liquid Date 10/17/21 Last Liquid Time 23:00 Last Solid Date 10/17/21 Last Solid Time 20:00 Social: Social History: Tobacco and No alcohol Exam: Pre-Anes Outpt Exam: alert, oriented x 3 and regular rate & rhythm Airway: Submandibular: WNL Cervical ROM: WNL MP: 2 CV/HEM: CV/HEM: HTN GI: GI: GERD Musc/skel: Comments: CA pain Neuropsych: Neuropsych: Anxiety and Depression Anesthetic Plan: ASA status: 3 Anesthesia: MAC Risk of > 500 ml blood loss (7ml/kg in children): No PFSH Anesthesia PFSH: Medical History Abdominal pain Anxiety and depression GERD (gastroesophageal reflux disease) Hypertension Mass of uterine cervix determined by ultrasound Nausea & vomiting Vestibular nerve damage Family History Mother Diabetes Hypertension Stroke Thyroid disease Denies family history of Colon cancer Ovarian cancer Clotting disorder Hyperlipidemia Bleeding disorder Uterine cancer Social History Smoking and tobacco status: current every day smoker cigarettes Packs smoked per day: 1 Alcohol intake: former Data Anesthesia Cardiac Studies: No Data to Display
[2021-10-18] MEDS: sodium chloride 0.9% 1,000 ML 30 ML IV (10:52)
[2021-10-18] MEDS: scopolamine 1.5 Patch 1 PATCH TRANSDERMA (10:54)
[2021-10-18] MEDS: ondansetron 2 mg/ML SDV 2 mL 4 MG IVP (11:01)
[2021-10-18] MEDS: diphenhydrAMINE 50 mg/mL SDV 1mL 12.5 MG IVP (11:04)
[2021-10-18 11:05] VITALS: RESP 18; O2SAT 95
[2021-10-18] MEDS: fentaNYL 50 mcg/mL INJ 2mL IVP (11:05)
[2021-10-18] MEDS: ceFAZolin 1,000 MG in sodium chloride 0.9% (plus) 50 ML 100 MG IV (11:19)
[2021-10-18] MEDS: heparin, porcine 1,000 unit/mL INJ 10 mL 10000 UNIT IRRIGATION (11:43)
[2021-10-18] MEDS: lidocaine 2% INJ 20 mL INJECTION (11:43)
--- NOTE | 2021-10-18 11:51 | PM.OP ---
Operative Report Date of procedure: October 18, 2021 Pre-op Diagnosis: Cervical cancer Post-op diagnosis: same Procedure Done: 1. Placement of PowerPort via right subclavian vein 2. Fluoroscopic guidance and interpretation for placement of catheter Implants: Right subclavian vein PowerPort Surgeon: Eduardo Cuevas Clinical Documentation Consultant: Lawson Jefferson Circulating nurse Natalia Anesthesia: MAC (marketing professional Baljeet) Estimated blood loss (mL): 5 Condition: stable Disposition: same day Procedure: Patient was identified in the holding area and taken to the operative room and placed in supine position IV propofol was given by the anesthesia provider ,both arms were tucked,Time-out was done verifying the patient's name/date of /planned procedure and destination after the procedure, all were in agreement. SCDs confirmed to be functioning, preoperative antibiotics administered per protocol, and beta samantha protocol was confirmed, appropriate positioning of the patient was done by me. Medications were reviewed to assess for anticoagulant usage. Risks and benefits and prevention of central line associated blood stream infection (CLABSI) were discussed with the patient/CPOA, and a consent was obtained. Monitors were in place and monitored throughout the procedure. All necessary supplies were available prior to start. Hand hygiene was completed prior to starting. Maximum barrier technique was utilized including a sterile gown, sterile gloves with a hat and mask. Site was was prepped with [chlorhexidine] and a full body drape was placed. 5 mL of 2% lidocaine was injected into the skin with a 25 gauge needle. Prep& drape was done under the usual sterile technique, lidocaine 2% was injected at the site of the stick, started by right subclavian vein stick that retrieved venous blood was obtained from the first stick, a guidewire was then threaded and under the guidance of fluoroscopy position was confirmed to be in the IVC and my interpretation, there was no PVC changes, at that point the guidewire was secured to the drapes with a hemostat and the needle was taken out, attention was then deviated towards creation of a pocket for the port were lidocaine 2% was injected using an 15 blade knife skin incision was created dissection using the Bovie to create a pocket for the PowerPort to be accommodated, hemostasis was secured, after the port being appropriately flushed it was inserted into the pocket and a tunneler was used to accommodate the catheter of the port cath to be delivered through the incision first created at the site of the stick, at that point under fluoroscopy an estimated length was measured for the catheter and was cut at the designed level, followed by that a dilator with the sheath introduced onto the guidewire the dilator and the wire were retrieved and the catheter of the port was introduced via the sheath where it was peeled off and the catheter maintained to be in the SVC that was confirmed with fluoroscopy, and the fluoroscopy interpretation was done by me throughout the entire procedure. The port was kept in its pocket, 3-0 Vicryl deep subdermal interrupted sutures, skin was then closed by 4-0 Monocryl as subcuticular closure.The port was appropriately flushed with heparin and venous blood was withdrawn without difficulty. The stick site was closed by 3-0 Vicryl and surgical glue was used followed by dressing. Patient tolerated the procedure well was taken to the recovery area Count was correct at the end of the procedure I was present for the whole entire procedure Position of the catheter was checked with a postoperative chest x-ray and it was in good position without evidence of pneumothorax
--- NOTE | 2021-10-18 11:53 | XRR_ITS ---
PROCEDURE INFORMATION: Exam: XR Chest Exam date and time: 10/18/2021 11:53 AM Age: 60 years old Clinical indication: Device placement. Right subclavian vein powerport placement. Post-operative (0-2 days). Status post right subclavian vein powerport placement. TECHNIQUE: Imaging protocol: XR of the chest. Views: 1 view. COMPARISON: CR Chest 1 [place] [id number] 12/10/2017 6:06 AM FINDINGS: Tubes, catheters and devices: Right subclavian port with tip in the SVC. Lungs: There is mild streaky and hazy opacity in the right apex that could developing infiltrate. Pleural spaces: No pleural effusion.. No pneumothorax. Heart/Mediastinum: The cardiac silhouette is approximately unchanged. No gross evidence of pneumomediastinum. Bones/joints: No gross fracture. XR/XR chest 1V portable [id number] IMPRESSION: 1. Right subclavian port with tip in the SVC. 2. Mild streaky and hazy opacity in the right apex that could developing infiltrate. Radiation Dose CTDIVOL = (mGy): DLP = (mGy-cm)
[2021-10-18 12:03] VITALS: BP 101/64; PULSE 85; RESP 16; TEMP 36.3; O2SAT 98
--- NOTE | 2021-10-18 12:06 | P.PCN_ITS ---
Documented by User: Baljeet Mcneil CRNA 10/18/21 12:06 PACU note PACU note: VSS, Good respiratory effort, report to [facility] Post-Anesthesia Exam: awake
[2021-10-18 12:10] VITALS: BP 114/69; PULSE 86; RESP 17; TEMP 36.5; O2SAT 96
[2021-10-18 12:17] VITALS: BP 106/71; PULSE 85; RESP 16; TEMP 36.5; O2SAT 96
[2021-10-18 12:33] VITALS: BP 119/63; PULSE 82; RESP 18; O2SAT 98
[2021-10-18] MEDS: HYDROcodone-acetaminophen 5-325 mg Tablet 1 TAB PO (12:36)
--- NOTE | 2021-10-18 13:49 | ANE.PACU2 ---
Inpatient post-anesthesia follow up: Airway intact: Yes Vital signs: Temperature 97.7 F Pulse Rate 82 Respiratory Rate 18 Blood Pressure 119/63 Pulse Oximetry 98 Oxygen Delivery Me thod Room Air Oxygen Flow Rate Fraction of Inspir ed Oxygen Hydration adequate: Yes Nausea and vomiting: No Pain level: 1 Mental status: Baseline
== END 2021-10-18 12:50 | disposition home or self-care (01) ==
PROVIDERS: Absent Provider Radiology Radiation Oncology; PCP Family Medicine Adult Medicine; Visit Provider Surgery
PROC: (CPT 36561; principal; 2021-10-18 10:40)
DX: C53.9 Malignant neoplasm of cervix uteri, unspecified (principal); I10 Essential (primary) hypertension; F17.200 Nicotine dependence, unspecified, uncomplicated
CPT/HCPCS: 36561; 71045; 77001; C1788; J0690; J1200; J1644; J2405; J2704; J3010; J7030

== ENCOUNTER 2021-10-19 08:11 | Outpatient (RCR) | payer MEDICAID, SELFPAY ==
--- NOTE | 2021-10-19 | CT_ITS ---
Radiation Therapy Planning CT images; total exam DLP: 667.51 mGy-cm MTDD
[2021-10-19 08:47] LABS: Basophils % 0.4 %; Eosinophils # 1.2 10^3/uL (0.0-0.8); Eosinophils % 14.7 %; Hematocrit 26.2 % (37.0-47.0); Hemoglobin 8.2 g/dL (11.5-15.3); Lymphocytes # 0.5 10^3/uL (0.8-4.8); Lymphocytes % 6.5 %; Mean Corpuscular HGB Conc 31.3 g/dL (30.0-36.0); Mean Corpuscular Hemoglobin 25.1 pg (28.0-34.0); Mean Corpuscular Volume 80.1 fl (81-99); Mean Platelet Volume 9.7 fL (7.4-10.4); Monocytes # 0.3 10^3/uL (0.2-0.9); Monocytes % 3.8 %; Neutrophils # 5.91 10^3/uL (1.8-7.7); Neutrophils % 74.3 %; Nucleated Red Blood Cells % 0 %; Platelet Count 239 10^3/cmm (130-400); Red Blood Count 3.27 10^6/uL (4.1-5.3); Red Cell Distribution Width 14.9 % (12.1-15.1)
[2021-10-19 09:17] LABS: Alanine Aminotransferase < 5 U/L (0-33); Albumin Level 3.8 g/dL (3.5-5.2); Alkaline Phosphatase 102 IU/L (35-105); Anion Gap 15.2 (5-19); Aspartate Amino Transferase 9 U/L (0-32); Blood Urea Nitrogen 10 mg/dL (6-20); Calcium 8.4 mg/dL (8.5-10.5); Carbon Dioxide 24 mmol/L (22-29); Chloride 100 mmol/L (98-107); Globulin 2.6 g/dL (1.3-4.6); Glomerular Filtration Rate 163.4 mL/min (90-130); Glucose 126 mg/dL (65-115); Osmolality Calculated 281 mOsm/kg (285-295); Potassium 4.2 mmol/L (3.5-5.1); Sodium 135 mmol/L (136-145); Total Bilirubin 0.2 mg/dL (0.15-1.2); Total Protein 6.4 g/dL (6.6-8.7)
[2021-10-19 09:27] VITALS: RESP 22; O2SAT 98
[2021-10-19] MEDS: morphine 4 mg/mL SDV 1 mL 2 MG IV (09:27)
== END 2021-10-19 23:59 | disposition home or self-care (01) ==
LOC: ONCMED 08:11
PROVIDERS: Radiology Radiation Oncology; PCP Family Medicine Adult Medicine; Visit Provider Internal Medicine Hematology & Oncology
DX: Z51.0 Encounter for antineoplastic radiation therapy (principal); C53.9 Malignant neoplasm of cervix uteri, unspecified; Z79.899 Other long term (current) drug therapy
CPT/HCPCS: 77263; 77334; 77470; 80053; 85025; 96374; J2270; Q9967

== ENCOUNTER 2021-10-27 06:33 | Outpatient (RCR) | payer MEDICAID, SELFPAY ==
[2021-10-27 08:27] LABS: Basophils % 0.4 %; Eosinophils # 0.6 10^3/uL (0.0-0.8); Eosinophils % 5.7 %; Hematocrit 27.4 % (37.0-47.0); Hemoglobin 8.8 g/dL (11.5-15.3); Lymphocytes # 0.6 10^3/uL (0.8-4.8); Lymphocytes % 5.1 %; Mean Corpuscular HGB Conc 32.1 g/dL (30.0-36.0); Mean Corpuscular Hemoglobin 25.4 pg (28.0-34.0); Mean Platelet Volume 9.9 fL (7.4-10.4); Monocytes # 0.4 10^3/uL (0.2-0.9); Monocytes % 3.6 %; Neutrophils # 9.38 10^3/uL (1.8-7.7); Neutrophils % 84.9 %; Nucleated Red Blood Cells % 0 %; Platelet Count 321 10^3/cmm (130-400); Red Blood Count 3.47 10^6/uL (4.1-5.3); Red Cell Distribution Width 15.4 % (12.1-15.1)
[2021-10-27] MEDS: sodium chloride 0.9% 250 ML 75 ML IV ×2 (08:45)
[2021-10-27 08:51] LABS: Alanine Aminotransferase 6 U/L (0-33); Albumin Level 3.7 g/dL (3.5-5.2); Alkaline Phosphatase 88 IU/L (35-105); Anion Gap 18.7 (5-19); Aspartate Amino Transferase 11 U/L (0-32); Blood Urea Nitrogen 15 mg/dL (6-20); Calcium 8.5 mg/dL (8.5-10.5); Carbon Dioxide 23 mmol/L (22-29); Chloride 102 mmol/L (98-107); Globulin 3.4 g/dL (1.3-4.6); Glomerular Filtration Rate 126.3 mL/min (90-130); Glucose 134 mg/dL (65-115); Osmolality Calculated 293 mOsm/kg (285-295); Potassium 3.7 mmol/L (3.5-5.1); Sodium 140 mmol/L (136-145); Total Bilirubin 0.3 mg/dL (0.15-1.2); Total Protein 7.1 g/dL (6.6-8.7)
[2021-10-27] MEDS: morphine 4 mg/mL SDV 1 mL 2 MG IV (10:12)
[2021-10-27] MEDS: palonosetron 0.25 mg/5 mL SDV IV (10:50)
[2021-10-27] MEDS: fosaprepitant 150 MG in sodium chloride 0.9% 150 ML 300 MG IV (11:13)
[2021-10-27 12:51] LABS: Ferritin 60 ng/mL (15-150); Iron 20 ug/dL (37-145); Total Iron Binding Capacity 248 mcg/dl; Unsaturated Iron Binding 228 ug/dL (112-347)
[2021-10-27] MEDS: LORazepam 2 mg/mL INJ 1 mL 1 MG IV (12:56)
[2021-10-27] MEDS: FUROsemide 10 mg/mL SDV 2mL 20 MG IV ×2 (13:46)
[2021-10-27] MEDS: potassium chloride 20 MEQ in sodium chloride 0.9% 500 ML 500 MEQ IV (13:50)
== END 2021-11-19 23:59 | disposition home or self-care (01) ==
LOC: ONCMED 06:33
PROVIDERS: Absent Provider Radiology Radiation Oncology; PCP Family Medicine Adult Medicine; Visit Provider Internal Medicine Hematology & Oncology
DX: Z51.0 Encounter for antineoplastic radiation therapy (principal); Z51.11 Encounter for antineoplastic chemotherapy; C53.9 Malignant neoplasm of cervix uteri, unspecified
CPT/HCPCS: 77014; 77300; 77301; 77338; 77386; 80053; 82728; 83540; 83550; 85025; 96366; 96367; 96375; 96413; J1100; J1453; J1940; J2060; J2270; J2469; J3475; J3480; J7030; J7040; J7050; J9060

== ENCOUNTER 2022-02-25 11:34 | Emergency (ER) | payer MEDICAID, SELFPAY ==
[2022-02-25 11:42] VITALS: PULSE 81; RESP 16; TEMP 36.5; O2SAT 97; BMI 17.4
--- NOTE | 2022-02-25 11:56 | CT_ITS ---
WS: [id number] CT HEAD TECHNIQUE: Noncontrast CT of the head obtained from the skullbase to the vertex. CLINICAL INFORMATION: fall, head strike COMPARISON: CT 1 20,018 DLP: 784.[address] scans at [facility] use at least one of these dose optimization techniques: automated e xposure control; mA and/or kV adjustment per patient size (includes targeted exams where dose is matc hed to clinical indication); or iterative reconstruction. FINDINGS: No evidence of intracranial hemorrhage or mass effect. Ventricular system and basal cisterns are rizvi nt. Mild small vessel changes with mild parenchymal volume loss. No extra-axial fluid collections. No evidence of mass or mass effect. Normal aponte-white differentiation. Paranasal sinuses and mastoid air cells are well aerated. . Mild soft tissue edema overlying the RIGH T frontal lateral calvarium. No acute fractures. Mastoid air cells are well aerated. Slight mucosal t hickening ethmoid air cells. CT/CT head wo con* [id number] IMPRESSION: 1. No evidence of intracranial hemorrhage or mass effect. 2. Mild small vessel changes with mild parenchymal volume loss. 3. Mild soft tissue edema overlying the RIGHT frontal lateral calvarium. No ac [place] fractures. 4. No acute intracranial findings.
--- NOTE | 2022-02-25 12:05 | ED_ITS ---
Documented by User: Alicia Ascencio PA-C 02/25/22 14:17 HPI - Fall General: Chief Complaint: Fall Stated Complaint: FALL/ R SHOULDER PAIN/ TEMPORAL LAC Time Seen by Provider: 02/25/22 11:58 Source: patient and family Mode of arrival: EMS Limitations: no limitations History of Present Illness: 61-year-old female presents to the ER via EMS after falling this morning at the half-way. Patient reports she was standing on a chair to hang a calendar when she lost balance and fell, hitting her head and landing on her right shoulder. Patient reports a laceration to the right restoration that is bleeding. She reports pain in the right shoulder in addition to pain in the neck. Patient is on hospice and is a DNR at this time due to cervical cancer. Patient denies dizziness but does report a headache at this time that is new since falling this morning. Patient denies losing consciousness. She reports after she fell she started yelling to try to get help. Patient does not report a prolonged downtime after the fall. Fall from: chair Fall witnessed: no Place fall occurred: half-way/SNF Loss of consciousness: None Prolonged down time: no Associated symptoms-after fall: Reports headache(s) Review of Systems General: Reports: 10 or more systems reviewed and unremarkable except in HPI and below Musc: Reports: other (Right shoulder pain, neck pain) Skin/Breast: Reports: other (laceration to R restoration) Neuro: Reports: headache(s); Denies: dizziness [facility] ED PFSH: Medical History Abdominal pain Anemia in chronic illness Anxiety and depression GERD (gastroesophageal reflux disease) Hypertension Mass of uterine cervix determined by ultrasound Nausea & vomiting Vestibular nerve damage Family History Mother Diabetes Hypertension Stroke Thyroid disease Denies family history of Colon cancer Ovarian cancer Clotting disorder Hyperlipidemia Bleeding disorder Uterine cancer Social History Smoking and tobacco status: current every day smoker cigarettes Packs smoked per day: 1 Alcohol intake: former Physical Exam Const: GENERAL APPEARANCE: cooperative, ill appearing, frail appearing, appears older than stated age and other (cachectic) HENMT: HEAD & SCALP: laceration (4 cm laceration to R restoration) Eye: COMMON NORMALS: conjunctivae normal CONJUNCTIVA: Yes conjunctivae normal Neck/C-Spine: CERVICAL SPINE: Yes Cervical spine tenderness C4, C5, C6 and diffuse and Yes Paracervical muscle tenderness right Resp: EFFORT & INSPECTION: Yes able to speak in complete sentences and No respiratory distress Cardio: COMMON NORMALS: regular rate and regular rhythm RATE: regular rate RHYTHM: regular rhythm Extremity: OTHER: R humerus/shoulder tender to palpation and pain with any movement Neuro: OTHER: at pts baseline Skin: OTHER: 4 cm laceration to the R restoration, superficial Procedures Laceration Laceration 1: Site: face and other (R restoration) Side (If applicable): right Size (cm): 4 Description: linear Depth: simple, single layer Local Anesthetic: lidocaine 1% Amount of anesthesia used (mL): 1 Skin layer closed with: other (ethilon) Size (cm): 6-0 Number of sutures: 3 Technique: simple, interrupted Course ED course: 61-year-old female with a history of cervical cancer on hospice and DNR presents to the ER today after a fall this morning at the half-way. Patient was climbing on a chair and became dizzy and fell. Patient hit her head and has a laceration to the right restoration in addition to right arm pain. Patient reports she landed on her right arm. She also reports some neck pain with any movement. We will get a CT of the head and also the C-spine given mechanism of injury and patient's health status. We will also get an x-ray of the right shoulder given patient's pain. We will suture the laceration on the forehead. Vital Signs: Vital signs: Vital Signs Temperature 97.7 F 02/25/22 11:42 Pulse Rate 81 02/25/22 11:42 Respiratory Rate 16 02/25/22 11:42 Pulse Oximetry 97 02/25/22 11:42 MDM - Fall Medical Decision Making [id number] female with a history of end-stage cervical cancer and is on hospice and DNR presents to the ER today after a fall this morning. Patient was putting a counter on the wall when she became dizzy and fell off. Patient hit her head on something when she fell and has a laceration to the right restoration. Patient also complains of right shoulder pain and neck pain. Patient denies loss of consciousness. Patient reports she called for help immediately. Laceration was repaired in the ER today with 3 Ethilon sutures. X-ray indicates a humeral head fracture with minimal displacement. CT of the C-spine and the brain were negative for acute injuries. Discussed findings with patient and family. We will release patient back to hospice facility at this time. Patient is currently on Roxanol methadone and alprazolam through hospice. Patient was placed in a shoulder immobilizer and should follow-up with primary care in 1 week. Return to the ER with new or worsening symptoms. Patient verbalized understanding and is in agreement with the treatment plan. Lab Data Radiology Impressions Head CT 02/25/22 11:56 IMPRESSION: 1. No evidence of intracranial hemorrhage or mass effect. 2. Mild small vessel changes with mild parenchymal volume loss. 3. Mild soft tissue edema overlying the RIGHT frontal lateral calvarium. No acute fractures. 4. No acute intracranial findings. Shoulder X-Ray 02/25/22 12:32 IMPRESSION: Right shoulder fracture as above. Cervical Spine CT 02/25/22 12:57 IMPRESSION: No evidence of acute fracture or dislocation. Discharge Plan Discharge Patient Disposition: Hospice - Medical Facility Clinical Impression: Fall from chair or bed Closed fracture of head of right humerus Qualifiers: Encounter type: initial encounter Qualified Code(s): S42.291A - Other displaced fracture of upper end of right humerus, initial encounter for closed fracture Laceration of head Qualifiers: Encounter type: initial encounter Location of open wound of head: other part of head Foreign body presence: without foreign body Qualified Code(s): S01.81XA - Laceration without foreign body of other part of head, initial encounter Condition: Stable Prescriptions: No Action acetaminophen [Tylenol] 325 mg Tablet 325 - 650 mg PO Q6H PRN (Reason: Pain) 0RF Lasix 40 mg Tablet 40 mg PO DAILY@08 0RF senna 8.6 mg Tablet 17.2 mg PO BEDTIME@20 0RF acetaminophen 650 mg Suppository 650 mg WA Q4H PRN (Reason: Fever) 0RF Xanax 1 mg Tablet 1 mg PO QID@00,06,12,18 0RF methadone 10 mg Tablet 10 mg PO TID@08,14,20 0RF ondansetron HCl 4 mg tablet 4 mg PO Q8H PRN (Reason: Nausea) 0RF Roxanol 20 mg/5 mL (4 mg/mL) Solution See Rx Instructions .ROUTE .COMPLEX 0RF Rx Instructions: 0.25ml to 1ml under tongue every one hour prn pain or air hunger potassium citrate 10 mEq (1,080 mg) Tablet Extended Release 10 meq PO DAILY@08 0RF Miralax 17 gram/dose Powder 17 g PO DAILY@08 0RF atropine 1 % Drops See Rx Instructions .ROUTE .COMPLEX 0RF Rx Instructions: 1-4 drops under tongue every one hour prn secretions lorazepam [Lorazepam Intensol] 2 mg/mL Concentrate See Rx Instructions .ROUTE .COMPLEX 0RF Rx Instructions: 0.25ml to 1ml under tongue every one hour prn for anxiety or restlessness Referrals: Irwin Chua MD [Primary Care Provider] - Discharge Diet: Usual diet Discharge Activity: Limit activity as instructed Activity Restrictions/Additional Instructions: Wear sling as placed in ER. Continue home medications. Follow-up with primary care doctor in 1 week. Return to the ER with new or worsening symptoms. Coding Level of Care Code ED Calciminer for Chg Fwd Exam Detailed Documented by User: Indra Olivia DO 02/25/22 17:36 HPI - Fall General: Chief Complaint: Fall Stated Complaint: FALL/ R SHOULDER PAIN/ TEMPORAL LAC Time Seen by Provider: 02/25/22 11:58 PFSH ED PFSH: Medical History Abdominal pain Anemia in chronic illness Anxiety and depression GERD (gastroesophageal reflux disease) Hypertension Mass of uterine cervix determined by ultrasound Nausea & vomiting Vestibular nerve damage Family History Mother Diabetes Hypertension Stroke Thyroid disease Denies family history of Colon cancer Ovarian cancer Clotting disorder Hyperlipidemia Bleeding disorder Uterine cancer Social History Smoking and tobacco status: current every day smoker cigarettes Packs smoked per day: 1 Alcohol intake: former Course Vital Signs: Vital signs: Vital Signs Temperature 97.7 F 02/25/22 11:42 Pulse Rate 81 02/25/22 11:42 Respiratory Rate 16 02/25/22 11:42 Pulse Oximetry 97 02/25/22 11:42 MDM - Fall Medical Decision Making [id number] female with a history of end-stage cervical cancer and is on hospice and DNR presents to the ER today after a fall this morning. Patient was putting a counter on the wall when she became dizzy and fell off. Patient hit her head on something when she fell and has a laceration to the right restoration. Patient also complains of right shoulder pain and neck pain. Patient denies loss of consciousness. Patient reports she called for help immediately. Laceration was repaired in the ER today with 3 Ethilon sutures. X-ray indicates a humeral head fracture with minimal displacement. CT of the C-spine and the brain were negative for acute injuries. Discussed findings with patient and family. We will release patient back to hospice facility at this time. Patient is currently on Roxanol methadone and alprazolam through hospice. Patient was placed in a shoulder immobilizer and should follow-up with primary care in 1 week. Return to the ER with new or worsening symptoms. Patient verbalized understanding and is in agreement with the treatment plan. Chart reviewed and patient discussed with midlevel. Agree with assessment and plan. Lab Data Radiology Impressions Head CT 02/25/22 11:56 IMPRESSION: 1. No evidence of intracranial hemorrhage or mass effect. 2. Mild small vessel changes with mild parenchymal volume loss. 3. Mild soft tissue edema overlying the RIGHT frontal lateral calvarium. No acute fractures. 4. No acute intracranial findings. Shoulder X-Ray 02/25/22 12:32 IMPRESSION: Right shoulder fracture as above. Cervical Spine CT 02/25/22 12:57 IMPRESSION: No evidence of acute fracture or dislocation. Discharge Plan Discharge Patient Disposition: Hospice - Medical Facility Clinical Impression: Fall from chair or bed Closed fracture of head of right humerus Qualifiers: Encounter type: initial encounter Qualified Code(s): S42.291A - Other displaced fracture of upper end of right humerus, initial encounter for closed fracture Laceration of head Qualifiers: Encounter type: initial encounter Location of open wound of head: other part of head Foreign body presence: without foreign body Qualified Code(s): S01.81XA - Laceration without foreign body of other part of head, initial encounter Condition: Stable Prescriptions: No Action acetaminophen [Tylenol] 325 mg Tablet 325 - 650 mg PO Q6H PRN (Reason: Pain) 0RF Lasix 40 mg Tablet 40 mg PO DAILY@08 0RF senna 8.6 mg Tablet 17.2 mg PO BEDTIME@20 0RF acetaminophen 650 mg Suppository 650 mg WA Q4H PRN (Reason: Fever) 0RF Xanax 1 mg Tablet 1 mg PO QID@00,06,12,18 0RF methadone 10 mg Tablet 10 mg PO TID@08,14,20 0RF ondansetron HCl 4 mg tablet 4 mg PO Q8H PRN (Reason: Nausea) 0RF Roxanol 20 mg/5 mL (4 mg/mL) Solution See Rx Instructions .ROUTE .COMPLEX 0RF Rx Instructions: 0.25ml to 1ml under tongue every one hour prn pain or air hunger potassium citrate 10 mEq (1,080 mg) Tablet Extended Release 10 meq PO DAILY@08 0RF Miralax 17 gram/dose Powder 17 g PO DAILY@08 0RF atropine 1 % Drops See Rx Instructions .ROUTE .COMPLEX 0RF Rx Instructions: 1-4 drops under tongue every one hour prn secretions lorazepam [Lorazepam Intensol] 2 mg/mL Concentrate See Rx Instructions .ROUTE .COMPLEX 0RF Rx Instructions: 0.25ml to 1ml under tongue every one hour prn for anxiety or restlessness Referrals: Irwin Chua MD [Primary Care Provider] - Discharge Diet: Usual diet Discharge Activity: Limit activity as instructed Activity Restrictions/Additional Instructions: Wear sling as placed in ER. Continue home medications. Follow-up with primary care doctor in 1 week. Return to the ER with new or worsening symptoms. Coding Level of Care Code ED Calciminer for Marieg Fwd Exam Detailed
--- NOTE | 2022-02-25 12:12 | PC.PHAR ---
pt is from [facility]-yousif wakefield nurse at [facility] states the pt took am meds today
--- NOTE | 2022-02-25 12:32 | XR_ITS ---
WS: [id number] XR shoulder RT min 2V* [id number] REASON FOR EXAM: fall with arm pain FINDINGS: Fracture at the surgical neck of the humerus with 2 large and 2 small fragments of the humeral head. Fragments are minimally displaced. No glenohumeral dislocation. Osteoarthropathy in the acromioclavicular joint. Chemotherapy infusion port over the right chest with right subclavian vein catheter. XR/XR shoulder RT min 2V* [id number] IMPRESSION: Right shoulder fracture as above.
--- NOTE | 2022-02-25 12:57 | CT_ITS ---
WS: [id number] CT CERVICAL TRAUMA TECHNIQUE: Noncontrast CT of the cervical spine with coronal and sagittal reformatted images. CLINICAL INFORMATION: fall with pain COMPARISON: None. DLP: 252.[address] scans at [facility] use at least one of these dose optimization techniques: automated e xposure control; mA and/or kV adjustment per patient size (includes targeted exams where dose is matc hed to clinical indication); or iterative reconstruction. FINDINGS: Straightening of the normal cervical lordosis. Mild spondylitic changes. Disc space narrowing worse a t C5-C6 and C6-C7. Slight retrolisthesis C5 on C6. Mild disc bulging C2-C3 and C3-C4. Mild central ca nal stenosis C5-C6 and C6-C7. Advanced LEFT facet arthropathy C3-C4. Normal craniocervical junction. Normal C1-C2 articulation. Dens is normal in appearance. Normal occip ital condyles. Normal C1 ring. No evidence of acute fracture or dislocation. Normal prevertebral soft tissues. A few low-attenuation RIGHT thyroid nodules. Mastoids air cells are well aerated. CT/CT cervical spin wo con* [id number] IMPRESSION: No evidence of acute fracture or dislocation.
[2022-02-25 17:38] VITALS: RESP 18
== END 2022-02-25 17:04 | disposition hospice, inpatient (51) ==
PROVIDERS: Emergency Provider Physician Assistant; PCP Family Medicine Adult Medicine
DX: S42.291A Other displaced fracture of upper end of right humerus, initial encounter for closed fracture (principal); S01.81XA Laceration without foreign body of other part of head, initial encounter; W07.XXXA Fall from chair, initial encounter; F17.210 Nicotine dependence, cigarettes, uncomplicated; Z66 Do not resuscitate
CPT/HCPCS: 12002; 70450; 72125; 73030; 99283

== ENCOUNTER 2022-04-25 17:25 | Emergency (ER) | payer MEDICAID, SELFPAY ==
[2022-04-25 17:50] VITALS: BP 201/78; PULSE 97; RESP 19; TEMP 36.3; O2SAT 99; BMI 17.4
--- NOTE | 2022-04-25 18:23 | XRR_ITS ---
PROCEDURE INFORMATION: Exam: XR Right Shoulder Exam date and time: 04/25/2022 6:53 PM Age: 61 years old Clinical indication: Pain; Shoulder; Right; Additional info: Shoulder pain TECHNIQUE: Imaging protocol: XR Right shoulder. Views: 2 or more views. COMPARISON: CR XR chest 1V portable [id number] 10/18/2021 12:07 PM FINDINGS: Bones/joints: Humeral head and neck comminuted somewhat impacted fracture. Soft tissues: Normal. XR/XR shoulder RT min 2V* [id number] IMPRESSION: Humeral head and neck comminuted somewhat impacted fracture.
--- NOTE | 2022-04-25 19:39 | ED_ITS ---
HPI - Fall General: Chief Complaint: Fall Stated Complaint: ARM PAIN Time Seen by Provider: 04/25/22 19:39 History of Present Illness: 61-year-old female comes in today for complaints of pain to the right upper arm. Patient was staying with her sister in which they got into an argument today and her sister wanted her removed from the home. Patient at this time is in hospice for cervical cancer metastasized to the spine. Patient had fallen 2 weeks ago and has sustained a fracture to the right upper arm. Due to the arguing with her sister EMS were called and patient wanted EMS to take her to her friend's house and but EMS said the only place they could bring her was the emergency department. Patient at that time requested to come to the ER for her arm pain. Patient denies any homicidal or suicidal ideation. Associated symptoms-after fall: Denies chest pain or headache(s) Review of Systems General: Reports: 10 or more systems reviewed and unremarkable except in HPI and below Const: Denies: fever(s) Card: Denies: chest pain Resp: Denies: dyspnea Musc: Reports: extremity pain Skin/Breast: Denies: rash Neuro: Denies: headache(s) [facility] ED PFSH: Medical History Abdominal pain Anemia in chronic illness Anxiety and depression GERD (gastroesophageal reflux disease) Hypertension Mass of uterine cervix determined by ultrasound Nausea & vomiting Vestibular nerve damage Family History Mother Diabetes Hypertension Stroke Thyroid disease Denies family history of Colon cancer Ovarian cancer Clotting disorder Hyperlipidemia Bleeding disorder Uterine cancer Social History Smoking and tobacco status: current every day smoker cigarettes Packs smoked per day: 1 Alcohol intake: former Physical Exam Const: COMMON NORMALS: alert HENMT: COMMON NORMALS: normocephalic HEAD & SCALP: normocephalic Neck/C-Spine: COMMON NORMALS: full ROM Resp: COMMON NORMALS: normal respiratory effort and clear to auscultation bilaterally AUSCULTATION: clear to auscultation bilaterally Cardio: COMMON NORMALS: regular rate RATE: regular rate Extremity: RIGHT UPPER EXTREMITY: Yes upper arm (Minimal swelling, proximal tenderness) Neuro: SENSORIUM/ORIENTATION: Yes alert Course Vital Signs: Vital signs: Vital Signs Temperature 97.4 F L 04/25/22 17:50 Pulse Rate 97 04/25/22 17:50 Respiratory Rate 19 H 04/25/22 17:50 Blood Pressure 201/78 04/25/22 17:50 Pulse Oximetry 99 04/25/22 17:50 MDM - Fall Medical Decision Making 61-year-old female comes in with complaints of pain to the right upper arm. On exam patient has a tenderness to the right upper arm. Patient appears chronically ill. Patient does have cancer and is in hospice at this time. Differential diagnosis includes fracture of the humerus, arm pain, anxiety. X- ray of the arm notes a healing right upper arm humeral compression fracture. Reviewed exam with patient with recommendations for treatment and follow-up. Discussed with patient with [facility] hosp[facility] nurse and social services technician they reported that the family is having difficulty caring for her at home and they have been trying to get her to go into a facility for improved care but there is significant social barriers at this time. Patient denies any suicidal homicidal thoughts and will be released to home care with need to follow-up with primary care. Patient reported understanding and agreed to plan. Lab Data Radiology Impressions Shoulder X-Ray 04/25/22 18:23 IMPRESSION: Humeral head and neck comminuted somewhat impacted fracture. Discharge Plan Discharge Patient Disposition: Home Clinical Impression: Fracture, humerus closed Qualifiers: Encounter type: subsequent encounter Humerus Location: proximal Fracture alignment: nondisplaced Laterality: right Fracture healing: with routine healing Condition: Stable Prescriptions: New hydrocodone-acetaminophen 5-325 mg tablet 1 tab PO Q6H PRN (Reason: pain) Qty: 10 0RF No Action methadone 10 mg tablet 10 mg PO TID@08,14,20 30 Days Qty: 90 0RF acetaminophen [Tylenol] 325 mg Tablet 325 - 650 mg PO Q6H PRN (Reason: Pain) 0RF Lasix 40 mg Tablet 40 mg PO DAILY@08 0RF senna 8.6 mg Tablet 17.2 mg PO BEDTIME@20 0RF acetaminophen 650 mg Suppository 650 mg RI Q4H PRN (Reason: Fever) 0RF Xanax 1 mg Tablet 1 mg PO QID@00,06,12,18 0RF ondansetron HCl 4 mg tablet 4 mg PO Q8H PRN (Reason: Nausea) 0RF Roxanol 20 mg/5 mL (4 mg/mL) Solution See Rx Instructions .ROUTE .COMPLEX 0RF Rx Instructions: 0.25ml to 1ml under tongue every one hour prn pain or air hunger potassium citrate 10 mEq (1,080 mg) Tablet Extended Release 10 meq PO DAILY@08 0RF Miralax 17 gram/dose Powder 17 g PO DAILY@08 0RF atropine 1 % Drops See Rx Instructions .ROUTE .COMPLEX 0RF Rx Instructions: 1-4 drops under tongue every one hour prn secretions lorazepam [Lorazepam Intensol] 2 mg/mL Concentrate See Rx Instructions .ROUTE .COMPLEX 0RF Rx Instructions: 0.25ml to 1ml under tongue every one hour prn for anxiety or restlessness Discharge Orders: Discharge ED (Routine); Ordered 04/25/22 Ordered By: Jass Zamudio Referrals: Irwin Chua MD [Primary Care Provider] - Discharge Diet: Usual diet Discharge Activity: Increase activity as tolerated Patient Instructions: Musculoskeletal Pain (ED), Opioid Safety Activity Restrictions/Additional Instructions: Follow-up with primary care for further treatment. Return to ER for new concerns. Coding Level of Care Code ED Chief Nursing Officer for Jose Alberto Olivia
== END 2022-04-25 19:55 | disposition home or self-care (01) ==
PROVIDERS: Emergency Provider Nurse Practitioner Family; PCP Family Medicine Adult Medicine
DX: S42.291D Other displaced fracture of upper end of right humerus, subsequent encounter for fracture with routine healing (principal); X58.XXXD Exposure to other specified factors, subsequent encounter
CPT/HCPCS: 73030; 99283